=== PATIENT | female | born 1960 | race Caucasian/White ===

== ENCOUNTER 2016-12-06 19:59 | Emergency (ER) | payer OTHER ==
[~2016-12-06] VITALS: Ht 180.3 cm; Wt 88.6 kg
[~2016-12-06 19:59] MED LIST: ALBU8.5H IH; DIPH25CA85 PO; FLUO40CA7 PO; PHENY100 PO
[2016-12-06] MEDS ORDERED: ACETAMINOPHEN 500 MG TABLET PO ONE (22:00)
[2016-12-07 00:07] VITALS: BP 120/71
== END 2016-12-07 00:10 | disposition home or self-care (01) ==
LOC: EMS 20:11
DX: S00.83XA Contusion of other part of head, initial encounter (principal); S00.03XA Contusion of scalp, initial encounter; J45.909 Unspecified asthma, uncomplicated; W01.0XXA Fall on same level from slipping, tripping and stumbling without subsequent striking against object, initial encounter; Y93.89 Activity, other specified; Y92.22 Religious institution as the place of occurrence of the external cause; Y99.8 Other external cause status
CPT/HCPCS: 70100; 70450; 99284

== ENCOUNTER 2017-12-19 08:08 | Emergency (ER) | payer OTHER ==
[~2017-12-19] VITALS: Ht 180.3 cm; Wt 90.9 kg
[~2017-12-19 08:08] MED LIST changes: -ALBU8.5H IH; +ALBU8.5H8 IH
[2017-12-19] MEDS ORDERED: LORazepam 1 MG TABLET PO ONE (09:15)
[2017-12-19 09:26] LABS: BASOPHILS % (AUTO) 0.3 % (0.0-2.0); EOSINOPHILS % (AUTO) 1.5 % (1.0-6.0); HEMATOCRIT 40.8 % (36-46); HEMOGLOBIN 13.9 g/dL (12.0-16.0); LYMPHOCYTES # (AUTO) 1.1 K/uL (1.0-4.8); MEAN CORPUSCULAR HEMOGLOBIN 28.1 pg (26.0-34.0); MEAN CORPUSCULAR HGB CONC 34.1 G/dL (31.0-37.0); MEAN CORPUSCULAR VOLUME 83 fL (80-100); MONOCYTES # (AUTO) 0.5 K/uL (0.1-1.0); MONOCYTES % (AUTO) 7.6 % (2.0-9.0); NEUTROPHILS # (AUTO) 4.4 K/uL (1.8-7.7); NEUTROPHILS % (AUTO) 72.6 % (40.0-70.0); PLATELET COUNT (AUTO) 291 K/uL (150-450); RED BLOOD CELL COUNT(AUTO) 4.94 MIL/uL (4.00-5.20); RED CELL DISTRIBUTION WIDTH 14.1 % (11.5-14.5)
[2017-12-19 09:29] LABS: ANION GAP 13 mmol/L (8-16); CALCIUM, TOTAL 9.2 mg/dL (8.8-10.5); CARBON DIOXIDE 25 mmol/L (22-29); CHLORIDE 104 mmol/L (98-107); CREATININE 0.88 mg/dL (0.60-1.30); GLOMERULAR FILTR. RATE CALC > 60 mL/min (>60); GLUCOSE,RANDOM 105 mg/dL (70-110); POTASSIUM 3.4 mmol/L (3.5-5.1); SODIUM SERUM 142 mmol/L (136-145); UREA NITROGEN, BLOOD 13 mg/dL (7-18)
[2017-12-19 09:31] LABS: AMPHET/METH SCREEN,URINE NEGATIVE (NEGATIVE); BARBITURATE SCREEN, URINE NEGATIVE (NEGATIVE); BENZODIAZEPINES SCREEN,URINE NEGATIVE (NEGATIVE); CANNABINOID SCREEN,URINE NEGATIVE (NEGATIVE); COCAINE SCREEN,URINE POSITIVE (NEGATIVE); METHADONE SCREEN, URINE NEGATIVE (NEGATIVE); OPIATE SCREEN,URINE NEGATIVE (NEGATIVE)
[2017-12-19 09:33] LABS: PHENCYCLIDINE SCREEN,URINE NEGATIVE (NEGATIVE)
[2017-12-19 09:35] LABS: ALANINE AMINOTRANSFERASE 30 U/L (12-78); ALBUMIN 3.9 g/dL (3.4-5.0); ALKALINE PHOSPHATASE 116 U/L (46-116); ASPARTATE AMINOTRANSFERASE 21 U/L (15-37); BILIRUBIN,TOTAL 0.4 mg/dL (0.1-1.0); TOTAL PROTEIN, SERUM 7.9 g/dL (6.4-8.2)
[2017-12-19] MEDS: ACETAMINOPHEN 500 MG TABLET PO ONE ×2 (09:39→09:43)
[2017-12-19 09:40] LABS: APPEARANCE,URINE CLEAR (CLEAR); BILIRUBIN,URINE NEGATIVE (NEGATIVE); GLUCOSE, URINE (UA) NEGATIVE (NEGATIVE); KETONES,URINE NEGATIVE (NEGATIVE); LEUKOCYTE ESTERASE ,URINE NEGATIVE (NEGATIVE); NITRATE,URINE NEGATIVE (NEGATIVE); OCCULT BLOOD,URINE SMALL (NEGATIVE); PH,URINE 7.5 (5.0-8.0); PROTEIN,URINE NEGATIVE (NEGATIVE); UROBILINOGEN,URINE 0.2 mg/dL (<=1.0)
[2017-12-19 09:59] LABS: WBC,URINE 0-2 /HPF (0-5)
[2017-12-19 10:00] LABS: BACTERIA,URINE Rare /HPF (None Seen); SQUAMOUS EPITHELIAL CELL,UR Rare /LPF (None Seen)
[2017-12-19 10:06] LABS: B-TYPE NATRIURETIC PEPTIDE 10 pg/mL (0-100)
[2017-12-19 10:15] VITALS: BP 139/79
== END 2017-12-19 10:24 | disposition home or self-care (01) ==
LOC: EMS 08:10
DX: R55 Syncope and collapse (principal); F14.90 Cocaine use, unspecified, uncomplicated; R51 Headache; F17.200 Nicotine dependence, unspecified, uncomplicated
CPT/HCPCS: 70450; 93005; 99285; 99406

== ENCOUNTER 2019-09-12 12:22 | Emergency (ER) | payer OTHER ==
[~2019-09-12] VITALS: Ht 180.3 cm; Wt 72.7 kg
[2019-09-12 12:58] VITALS: BP 124/78
[2019-09-12] MEDS ORDERED: ACETAMINOPHEN 325 MG TABLET PO ONE (13:00)
== END 2019-09-12 13:26 | disposition home or self-care (01) ==
LOC: EMS 12:23
DX: M79.89 Other specified soft tissue disorders (principal); M79.644 Pain in right finger(s); J45.909 Unspecified asthma, uncomplicated; F32.9 Major depressive disorder, single episode, unspecified; Z88.6 Allergy status to analgesic agent; Z91.018 Allergy to other foods

== ENCOUNTER 2019-09-20 13:03 | Emergency (ER) | payer OTHER ==
[~2019-09-20] VITALS: Ht 180.3 cm; Wt 74.1 kg
[~2019-09-20 13:03] MED LIST changes: -ALBU8.5H8 IH; -DIPH25CA85 PO
[2019-09-20 16:36] VITALS: BP 108/68
[2019-09-20] MEDS ORDERED: ACETAMINOPHEN 500 MG TABLET PO ONE (16:45)
== END 2019-09-20 17:12 | disposition home or self-care (01) ==
LOC: EMS 13:04
DX: S60.022A Contusion of left index finger without damage to nail, initial encounter (principal); J45.909 Unspecified asthma, uncomplicated; F32.9 Major depressive disorder, single episode, unspecified; Z88.6 Allergy status to analgesic agent; Z91.018 Allergy to other foods; W19.XXXA Unspecified fall, initial encounter; Y93.89 Activity, other specified; Y92.89 Other specified places as the place of occurrence of the external cause; Y99.8 Other external cause status

== ENCOUNTER 2019-10-12 13:19 | Emergency (ER) | payer OTHER ==
[~2019-10-12] VITALS: Ht 180.3 cm; Wt 74.1 kg
[~2019-10-12 13:19] MED LIST changes: -PHENY100 PO
[2019-10-12] MEDS ORDERED: ALBU8HFA IH (13:30)
[2019-10-12] MEDS ORDERED: LIDOCAINE/PF 1% 2 ML VIAL IM ONE (14:45)
[2019-10-12] MEDS ORDERED: CefTRIAXone SODIUM 1 GM/VIAL IM ONE (14:45)
[2019-10-12 15:12] VITALS: BP 132/69
== END 2019-10-12 16:04 | disposition home or self-care (01) ==
LOC: EMS 13:20
DX: L03.114 Cellulitis of left upper limb (principal); J45.909 Unspecified asthma, uncomplicated; F32.9 Major depressive disorder, single episode, unspecified; Z88.6 Allergy status to analgesic agent; Z91.018 Allergy to other foods
CPT/HCPCS: 96372; 99283; J0696; J3490

== ENCOUNTER 2020-05-01 10:50 | Emergency (ER) | payer OTHER ==
[~2020-05-01] VITALS: Ht 180.3 cm; Wt 77.3 kg
[~2020-05-01 10:50] MED LIST changes: +ALBU8HFA IH
[2020-05-01] MEDS ORDERED: NAPROXEN 250 MG TABLET PO ONE (11:30)
[2020-05-01 14:07] VITALS: BP 144/67
== END 2020-05-01 14:04 | disposition home or self-care (01) ==
LOC: EMS 10:52
DX: M25.562 Pain in left knee (principal); J45.909 Unspecified asthma, uncomplicated; F32.9 Major depressive disorder, single episode, unspecified; Z79.899 Other long term (current) drug therapy; Z88.6 Allergy status to analgesic agent; Z91.018 Allergy to other foods
CPT/HCPCS: 93971

== ENCOUNTER 2022-02-09 13:15 | Emergency (ER) | payer OTHER ==
[~2022-02-09] VITALS: Ht 180.3 cm; Wt 72.7 kg
[2022-02-09 13:45] VITALS: BP 112/71
[2022-02-09] MEDS ORDERED: BACITRACIN 0.9 GM PACKET OINTMENT TP ONE (13:45)
== END 2022-02-09 14:13 | disposition home or self-care (01) ==
LOC: EMS 13:17
DX: S01.01XD Laceration without foreign body of scalp, subsequent encounter (principal); Z48.02 Encounter for removal of sutures; J45.909 Unspecified asthma, uncomplicated; F32.9 Major depressive disorder, single episode, unspecified; Z79.899 Other long term (current) drug therapy; Z88.6 Allergy status to analgesic agent; Z91.018 Allergy to other foods; W18.39XD Other fall on same level, subsequent encounter
CPT/HCPCS: 99282; Z7502; Z7610

== ENCOUNTER 2022-08-24 15:41 | Emergency (ER) | payer OTHER ==
[~2022-08-24] VITALS: Ht 180.3 cm; Wt 76.4 kg
[2022-08-24 16:07] VITALS: BP 120/61
== END 2022-08-24 16:54 | disposition home or self-care (01) ==
LOC: EMS 15:41
DX: S00.06XA Insect bite (nonvenomous) of scalp, initial encounter (principal); F32.9 Major depressive disorder, single episode, unspecified; J45.909 Unspecified asthma, uncomplicated; W57.XXXA Bitten or stung by nonvenomous insect and other nonvenomous arthropods, initial encounter; Y93.89 Activity, other specified; Y92.89 Other specified places as the place of occurrence of the external cause; Y99.8 Other external cause status
CPT/HCPCS: 99281; Z7502

== ENCOUNTER 2025-04-20 10:22 | Emergency (ER) | payer MEDICARE, OTHER ==
[~2025-04-20] VITALS: Ht 180.3 cm; Wt 99.1 kg
[~2025-04-20 10:22] MED LIST changes: +ALBU18HF12 IH; -ALBU8HFA IH
[2025-04-20 10:25] VITALS: TEMP 97.5
[2025-04-20] MEDS ORDERED: CHOL25TA4 PO (10:27)
[2025-04-20] MEDS ORDERED: CETI10TA58 PO (10:27)
[2025-04-20] MEDS ORDERED: AMIT50TA14 PO (10:27)
[2025-04-20] MEDS: MECLIZINE HCL 25 MG TABLET PO ONE (10:59)
[2025-04-20] MEDS: SODIUM CHLORIDE 0.9% 1,000 ML IV ONE (10:59)
[2025-04-20 11:08] LABS: BASOPHILS % (AUTO) 0.1 % (0.0-2.0); EOSINOPHILS % (AUTO) 2.8 % (1.0-6.0); HEMATOCRIT 41.4 % (36-46); HEMOGLOBIN 13.6 g/dL (12.0-16.0); LYMPHOCYTES % (AUTO) 17.3 % (22.0-44.0); MEAN CORPUSCULAR HEMOGLOBIN 27.1 pg (26.0-34.0); MEAN CORPUSCULAR HGB CONC 32.9 G/dL (31.0-37.0); MEAN CORPUSCULAR VOLUME 82 fL (80-100); MONOCYTES # (AUTO) 0.6 K/uL (0.1-1.0); MONOCYTES % (AUTO) 11.4 % (2.0-9.0); NEUTROPHILS # (AUTO) 3.8 K/uL (1.8-7.7); NEUTROPHILS % (AUTO) 68.4 % (40.0-70.0); PLATELET COUNT (AUTO) 286 K/uL (150-450); RED BLOOD CELL COUNT(AUTO) 5.04 MIL/uL (4.00-5.20); RED CELL DISTRIBUTION WIDTH 15.3 % (11.5-14.5); WHITE BLOOD COUNT (AUTO) 5.5 K/uL (4.5-11.0)
[2025-04-20 11:17] LABS: ANION GAP 6 mmol/L (8-16); CALCIUM, TOTAL 8.9 mg/dL (8.8-10.5); CARBON DIOXIDE 28 mmol/L (22-29); CHLORIDE 101 mmol/L (98-107); CREATININE 1.23 mg/dL (0.60-1.30); GLOMERULAR FILTR. RATE CALC 44 mL/min (>60); GLUCOSE,RANDOM 135 mg/dL (70-110); POTASSIUM 3.3 mmol/L (3.5-5.1); SODIUM SERUM 135 mmol/L (136-145); UREA NITROGEN, BLOOD 14 mg/dL (7-18)
[2025-04-20 11:26] LABS: TROPONIN I-HIGH SENSITIVITY 4 ng/L (<51)
[2025-04-20 11:27] LABS: LACTIC ACID 1.4 mmol/L (0.4-2.0)
[2025-04-20 11:34] LABS: ALANINE AMINOTRANSFERASE 31 U/L (12-78); ALBUMIN 3.5 g/dL (3.4-5.0); ALKALINE PHOSPHATASE 121 U/L (46-116); ASPARTATE AMINOTRANSFERASE 28 U/L (15-37); BILIRUBIN,TOTAL 0.6 mg/dL (0.1-1.0); TOTAL PROTEIN, SERUM 7.9 g/dL (6.4-8.2)
[2025-04-20] MEDS ORDERED: MECL-226 PO (12:42)
[2025-04-20 13:09] VITALS: BP 129/88; PULSE 80; RESP 18; O2SAT 96
== END 2025-04-20 13:45 | disposition home or self-care (01) ==
LOC: EMS 10:27
DX: H81.10 Benign paroxysmal vertigo, unspecified ear (principal); J45.909 Unspecified asthma, uncomplicated; F32.A Depression, unspecified; Z98.890 Other specified postprocedural states; Z88.6 Allergy status to analgesic agent; Z79.899 Other long term (current) drug therapy
CPT/HCPCS: 99285; 70450; 71045; 80048; 80076; 82140; 82962; 83605; 84484; 85025; 36415; 93005; J7030